=== PATIENT | female | born 1980 | race Caucasian/White ===

== ENCOUNTER 2017-11-08 02:21 | Emergency (ER) | payer MEDICAID, OTHER ==
[~2017-11-08] VITALS: Ht 167.6 cm; Wt 70.3 kg
[2017-11-08 02:28] VITALS: BP 132/90
[2017-11-08] MEDS: CEPHALEXIN 500 MG CAP PO ONE (05:31)
[2017-11-08] MEDS: FAMOTIDINE 20 MG TAB PO ONE (05:31)
[2017-11-08] MEDS: DEXAMETHASONE 10 MG/ML VIAL IM ONE (05:31)
[2017-11-08 06:18] VITALS: BP 107/86
== END 2017-11-08 06:18 | disposition home or self-care (01) ==
LOC: MED 02:21
DX: L29.9 Pruritus, unspecified (principal)
CPT/HCPCS: 96372; 99283; J1100